=== PATIENT | female | born 1995 | race American Indian/Alaskan Native ===

== ENCOUNTER 2019-01-25 11:12 | Emergency (ER) | payer MEDICAID, OTHER ==
--- NOTE | 2019-01-25 11:20 | Event Note ---
ED Screening Note ED Screening Note: 6w preg states due in Aug does not know LMP saw MD at clinic g2 multiples denies dm but states has had coma due to inc blood sugar appears altered pmh sz due to head trauma only when stressed off keppra denies mh history This initial assessment/diagnostic orders/clinical plan/treatment(s) is/are subj ect to change based on patients health status, clinical progression and re- assessment by fellow clinical providers in the ED. Further treatment and workup at subsequent clinical providers discretion. Patient/guardian urged not to elope from the ED as their condition may be serious if not clinically assessed and managed. Initial orders include: blood sugar 85 labs fluids/zoftan
[2019-01-25] MEDS ORDERED: ZOFRAN IV ONE (11:41)
[2019-01-25] MEDS ORDERED: NACL 0.9% 1000 ML 1,000 ML IV ONE (11:41)
--- NOTE | 2019-01-25 11:49 | Emergency Department Report ---
<SU CASTILLO - Last Filed: 01/25/19 11:42> ED N/V/D HPI - General Chief complaint: Nausea/Vomiting/Diarrhea Stated complaint: NAUSE/VOMITING Time Seen by Provider: 01/25/19 11:16 Source: patient Mode of arrival: Ambulatory Limitations: No Limitations - History of Present Illness Initial comments: 23-year-old -[place] female that is 6 weeks comes in reporting she cannot hold anything down. Patient reports that this been going on for 3 days. Patient last menstrual period was 12/10/2018. She is 2 para 2 with a set of twins. She admits abdominal pain and vaginal discharge but no vaginal bleeding. Patient has no past medical history no prior complications the except babies were delivered 2 months early because of one baby was compromising her foot than other baby. Patient reports that she has not started care had started vitamins but has stopped since she is vomiting. MD complaint: nausea, vomiting, abdominal pain Onset/Timin -: days(s) Description of Vomiting: food contents, watery Associated Abdominal Pain: Yes Location: diffuse Severity: mild Pain Scale: 0 Quality: cramping Consistency: intermittent Improves with: none Worsens with: none Associated Symptoms: nausea/vomiting - Related Data Previous Rx's Medication Instructions Recorded Last Taken Type Ondansetron [Zofran Odt] 4 mg PO Q8HR #14 tab.rapdis 01/25/19 Unknown Rx Allergies Allergy/AdvReac Type Severity Reaction Status Date / Time latex Allergy Rash Verified 01/25/19 11:14 ED Review of Systems Comment: All other systems reviewed and negative Gastrointestinal: abdominal pain (cramping), nausea, vomiting ED Past Medical Hx - Past Medical History Previous Medical History?: Yes 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 - Surgical History Additional Surgical History: C/S - Social History Smoking Status: Never Smoker Substance Use Type: None - Medications Home Medications: Home Medications Medication Instructions Recorded Confirmed Last Taken Type Ondansetron [Zofran Odt] 4 mg PO Q8HR #14 tab.rapdis 01/25/19 Unknown Rx ED Physical Exam - General Limitations: No Limitations General appearance: alert, in no apparent distress - Head Head exam: Present: atraumatic, normocephalic - Eye Eye exam: Present: normal appearance - ENT ENT exam: Present: mucous membranes moist - Respiratory Respiratory exam: Present: normal lung sounds bilaterally. Absent: respiratory distress - Cardiovascular Cardiovascular Exam: Present: regular rate, normal rhythm. Absent: systolic murmur, diastolic murmur, rubs, gallop - GI/Abdominal GI/Abdominal exam: Present: soft, normal bowel sounds. Absent: distended, tend erness - Extremities Exam Extremities exam: Present: normal inspection, full ROM - Back Exam Back exam: Present: normal inspection, full ROM - Neurological Exam Neurological exam: Present: alert, oriented X3 - Psychiatric Psychiatric exam: Present: normal affect, normal mood - Skin Skin exam: Present: warm, dry, intact, normal color. Absent: rash ED Medical Decision Making - Medical Decision Making 43-year-old female comes in for nausea vomiting abdominal pain. 6 weeks . Labs have been ordered ultrasound has been ordered IV fluids and IV Zofran 4 mg. ED Disposition Clinical Impression: Hyperemesis gravidarum Disposition: DC- TO HOME OR SELFCARE Condition: Stable Instructions: Hyperemesis Gravidarum (ED) Additional Instructions: Follow-up with your [facility] <LORE CALABRESE - Last Filed: 01/25/19 15:17> ED Review of Systems ROS: Stated complaint: NAUSE/VOMITING Other details as noted in HPI ED Course Vital Signs 01/25/19 11:19 Temperature 98.4 F Pulse Rate 82 Respiratory 16 Rate Blood Pressure 133/66 [Left] O2 Sat by Pulse 100 Oximetry ED Medical Decision Making - Lab Data Result diagrams: 01/25/19 11:46 01/25/19 11:46 Lab Results 01/25/19 01/25/19 01/25/19 Range/Units 11:26 11:34 11:46 WBC 10.1 (4.5-11.0) K/mm3 RBC 4.53 (3.65-5.03) M/mm3 Hgb 14.2 (10.1-14.3) gm/dl Hct 40.9 (30.3-42.9) % MCV 90 (79-97) fl MCH 31 (28-32) pg MCHC 35 H (30-34) % RDW 14.7 (13.2-15.2) % Plt Count 225 (140-440) K/mm3 Sodium (137-145) mmol/L Potassium (3.6-5.0) mmol/L Chloride (98-107) mmol/L Carbon Dioxide (22-30) mmol/L Anion Gap mmol/L BUN (7-17) mg/dL Creatinine (0.7-1.2) mg/dL Estimated GFR ml/min BUN/Creatinine Ratio % Glucose (65-100) mg/dL POC Glucose 85 (70-105) Calcium (8.4-10.2) mg/dL Total Bilirubin (0.1-1.2) mg/dL AST (5-40) units/L ALT (7-56) units/L Alkaline Phosphatase (35-129) units/L Total Protein (6.3-8.2) g/dL Albumin (3.9-5) g/dL Albumin/Globulin Ratio % HCG, Quant (0-4) mIU/mL Urine Color Yellow (Yellow) Urine Turbidity Cloudy (Clear) Urine pH 6.0 (5.0-7.0) Ur Specific [place] 1.024 (1.003-1.030) Urine Protein 30 mg/dl (Negative) mg/dL Urine Glucose (UA) Neg (Negative) mg/dL Urine Ketones 80 (Negative) mg/dL Urine Blood Neg (Negative) Urine Nitrite Neg (Negative) Urine Bilirubin Neg (Negative) Urine Urobilinogen < 2.0 (<2.0) mg/dL Ur Leukocyte Esterase Neg (Negative) Urine WBC (Auto) 1.0 (0.0-6.0) /HPF Urine RBC (Auto) 4.0 (0.0-6.0) /HPF U Epithel Cells (Auto) 24.0 H (0-13.0) /HPF Urine Mucus 3+ /HPF 01/25/19 01/25/19 Range/Units 11:46 11:46 WBC (4.5-11.0) K/mm3 RBC (3.65-5.03) M/mm3 Hgb (10.1-14.3) gm/dl Hct (30.3-42.9) % MCV (79-97) fl MCH (28-32) pg MCHC (30-34) % RDW (13.2-15.2) % Plt Count (140-440) K/mm3 Sodium 136 L (137-145) mmol/L Potassium 3.5 L (3.6-5.0) mmol/L Chloride 104.5 (98-107) mmol/L Carbon Dioxide 19 L (22-30) mmol/L Anion Gap 16 mmol/L BUN 9 (7-17) mg/dL Creatinine 0.4 L (0.7-1.2) mg/dL Estimated GFR > 60 ml/min BUN/Creatinine Ratio 23 % Glucose 84 (65-100) mg/dL POC Glucose (70-105) Calcium 9.5 (8.4-10.2) mg/dL Total Bilirubin 0.30 (0.1-1.2) mg/dL AST 15 (5-40) units/L ALT 12 (7-56) units/L Alkaline Phosphatase 67 (35-129) units/L Total Protein 7.7 (6.3-8.2) g/dL Albumin 4.2 (3.9-5) g/dL Albumin/Globulin Ratio 1.2 % HCG, Quant 09075 H (0-4) mIU/mL Urine Color (Yellow) Urine Turbidity (Clear) Urine pH (5.0-7.0) Ur Specific [place] (1.003-1.030) Urine Protein (Negative) mg/dL Urine Glucose (UA) (Negative) mg/dL Urine Ketones (Negative) mg/dL Urine Blood (Negative) Urine Nitrite (Negative) Urine Bilirubin (Negative) Urine Urobilinogen (<2.0) mg/dL Ur Leukocyte Esterase (Negative) Urine WBC (Auto) (0.0-6.0) /HPF Urine RBC (Auto) (0.0-6.0) /HPF U Epithel Cells (Auto) (0-13.0) /HPF Urine Mucus /HPF - Radiology Data Radiology results: image reviewed (patient has a viable 6-1/2 week gestation within the uterus) - Medical Decision Making Patient's nausea was improved with IV antiemetics. She does have a viable IUP. Patient be discharged home with medications for symptom relief. Critical care attestation.: If time is entered above; I have spent that time in minutes in the direct care of this critically ill patient, excluding procedure time. ED Disposition Is pt being admited?: No Does the pt Need Aspirin: No Time of Disposition: 15:16
[2019-01-25 12:11] LABS: Hematocrit 40.9 % (30.3-42.9); Hemoglobin 14.2 gm/dl (10.1-14.3); Mean Corpuscular HGB Conc 35 % (30-34); Mean Corpuscular Volume 90 fl (79-97); Platelet Count 225 K/mm3 (140-440); Red Blood Count 4.53 M/mm3 (3.65-5.03); Red Cell Distribution Width 14.7 % (13.2-15.2)
[2019-01-25 12:14] LABS: Bilirubin,Urine NEG (Negative); Blood,Urine NEG (Negative); Color,Urine Yellow (Yellow); Mucus,Urine 3+ /HPF; Urobilinogen,Urine < 2.0 mg/dL (<2.0)
[2019-01-25 12:36] LABS: Alanine Aminotransferase 12 units/L (7-56); Albumin 4.2 g/dL (3.9-5); BUN/Creatinine Ratio 23; Blood Urea Nitrogen 9 mg/dL (7-17); Calcium 9.5 mg/dL (8.4-10.2); Hemolysis Index 35
[2019-01-25 15:29] VITALS: BP 103/65
--- NOTE | 2019-01-25 16:14 | Ultrasound Report ---
Transabdominal and transvaginal OB pelvic ultrasound INDICATION / CLINICAL INFORMATION: 6 weeks with abdominal cramping. COMPARISON: None available. FINDINGS: Transabdominal: There is an intrauterine gestational sac with a pole measuring 6 weeks 2 days b y crown-rump length. The heart rate is 130 bpm. A yolk sac is present. The left ovary measures 3.3 x 2.0 x 3.1 cm and contains a questionable complex cyst. The right ovary measures 3.6 x 2.8 x 2.5 cm and contains a 2.4 cm corpus luteal cyst. There is normal blood flow to both ovaries on Doppler e xam. Transvaginal: There is a tiny area of subchorionic hemorrhage along the inferior margin of the gestat ional sac measuring approximately 1.6 cm. There is a pole measuring 6 weeks 6 days by crown-rum p length. A yolk sac is present. The heart rate is 128 bpm. The left ovary is unremarkable. The re is a 2.8 cm corpus luteal cyst in the right ovary. No free fluid is seen. IMPRESSION: 1. Single viable 6 week 6 day intrauterine . Tiny area of implantation hemorrhage inferiorly . 2. 2.8 cm corpus luteal cyst in the right ovary. Signer Name: Pardeep Harden MD Signed: 01/25/2019 4:09 PM Workstation Name: [id number]
== END 2019-01-25 15:26 | disposition home or self-care (01) ==
LOC: ED 11:12
DX: O21.0 Mild hyperemesis gravidarum (principal); O26.891 Other specified pregnancy related conditions, first trimester; R10.9 Unspecified abdominal pain; N89.8 Other specified noninflammatory disorders of vagina; Z3A.01 Less than 8 weeks gestation of pregnancy
CPT/HCPCS: 36415; 76801; 76817; 80053; 81001; 82962; 84702; 85027; 96361; 96374; 99284; J2405; J7030

== ENCOUNTER 2019-02-09 08:36 | Emergency (ER) | payer OTHER ==
[2019-02-09 08:56] VITALS: BP 122/65
[2019-02-09] MEDS ORDERED: NACL 0.9% 1000 ML 1,000 ML IV ONE (09:47)
[2019-02-09] MEDS ORDERED: ZOFRAN IV ONE (09:47)
[2019-02-09 10:12] LABS: Basophils % (Auto) 0.3 % (0.0-1.8); Eosinophils % (Auto) 0.1 % (0.0-4.3); Hemoglobin 14.6 gm/dl (10.1-14.3); Lymphocytes # (Auto) 2.4 K/mm3 (1.2-5.4); Mean Corpuscular HGB Conc 34 % (30-34); Mean Corpuscular Hemoglobin 31 pg (28-32); Mean Corpuscular Volume 90 fl (79-97); Monocytes % (Auto) 8.8 % (0.0-7.3); Platelet Count 224 K/mm3 (140-440); Red Blood Count 4.76 M/mm3 (3.65-5.03); Red Cell Distribution Width 14.4 % (13.2-15.2)
--- NOTE | 2019-02-09 10:14 | Emergency Department Report ---
ED Abdominal Pain HPI - General Chief Complaint: Nausea/Vomiting/Diarrhea Stated Complaint: KIDNEY PAIN Time Seen by Provider: 02/09/19 09:20 Source: patient Mode of arrival: Ambulatory Limitations: No Limitations - History of Present Illness Initial Comments: Patient is a 23-year-old who is currently about 9 weeks the last menstrual period of 12/10/2018. Patient has been seen by Dr. Cochran at [facility] for care. Patient's stress previous diagnosis for hyperemesis . Patient states that she's been having right sided flank pain with some diarrhea for the past couple of days. Patient denies dysuria, vaginal bleeding, vaginal discharge or any fever. MD Complaint: flank pain Location: R flank Radiation: none Migration to: no migration Severity scale (0 -10): 4 - Related Data Previous Rx's Medication Instructions Recorded Last Taken Type Ondansetron [Zofran Odt] 4 mg PO Q8HR #14 tab.marciadis 01/25/19 Unknown Rx Doxylamine Succinate/Vit B6 2 each PO QHS #40 tablet. 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 02/09/19 Unknown Rx [Abilio Sanchez 10-10 mg Tablet] ED Physical Exam - General Limitations: No Limitations General appearance: alert, in no apparent distress - Head Head exam: Present: atraumatic, normocephalic - Eye Eye exam: Present: normal appearance - ENT ENT exam: Present: mucous membranes moist - Neck Neck exam: Present: normal inspection - Respiratory Respiratory exam: Present: normal lung sounds bilaterally. Absent: respiratory distress - Cardiovascular Cardiovascular Exam: Present: regular rate, normal rhythm. Absent: systolic murmur, diastolic murmur, rubs, gallop - GI/Abdominal GI/Abdominal exam: Present: soft, normal bowel sounds. Absent: distended, tenderness, guarding - Extremities Exam Extremities exam: Present: normal inspection, full ROM - Back Exam Back exam: Present: normal inspection, full ROM. Absent: tenderness, CVA tenderness (R), CVA tenderness (L) - Neurological Exam Neurological exam: Present: alert, oriented X3 - Psychiatric Psychiatric exam: Present: normal affect, normal mood - Skin Skin exam: Present: warm, dry, intact, normal color. Absent: rash ED Course Vital Signs 02/09/19 08:53 Temperature 98.2 F Pulse Rate 78 Respiratory 16 Rate Blood Pressure 122/65 [Left] O2 Sat by Pulse 100 Oximetry ED Medical Decision Making - Lab Data Result diagrams: 02/09/19 10:00 02/09/19 10:00 - Medical Decision Making This is a 23-year-old female who presented with right flank pain with diarrhea. CBC, BMP, urinalysis are obtained. Labs within normal limits. Patient has a little dehydrated. Resuscitated patient 1 L of fluids and Zofran for nausea. Vital signs are stable patient is in no acute distress. Discussed follow-up with her [facility] in 2-3 days. Discussed the patient examined worsening symptoms or new symptoms return to ED. She is able to speak in clear sentences, on the sinus instructions and will follow up Critical care attestation.: If time is entered above; I have spent that time in minutes in the direct care of this critically ill patient, excluding procedure time. ED Disposition Clinical Impression: Acute diarrhea, Acute gastroenteritis Disposition: DC-01 TO HOME OR SELFCARE Is pt being admited?: No Does the pt Need Aspirin: No Condition: Stable Instructions: Gastroenteritis (ED), Acute Diarrhea (ED) Additional Instructions: Make sure to follow up with the primary care physician as discussed. Take all your medications as you've been prescribed. If you have any worsening symptoms or develop new symptoms please return to ED immediately. Prescriptions: Doxylamine Succinate/Vit B6 [Abilio Sanchez 10-10 mg Tablet] 2 each PO QHS #40 tablet. Referrals: COMPA UGARTE MD [Primary Care Provider] - 3-5 Days [facility] [Provider Group] - 3-5 Days Forms: Accompanied Note, Work/School Release Form(ED) Time of Disposition: 11:02
[2019-02-09 10:24] LABS: Mucus,Urine 3+ /HPF
[2019-02-09 10:25] LABS: Bilirubin,Urine NEG (Negative); Blood,Urine NEG (Negative); Color,Urine Amber (Yellow)
[2019-02-09 10:29] LABS: BUN/Creatinine Ratio 20; Blood Urea Nitrogen 10 mg/dL (7-17); Calcium 9.6 mg/dL (8.4-10.2); Hemolysis Index 8
== END 2019-02-09 11:42 | disposition home or self-care (01) ==
LOC: ED 08:36
DX: O99.611 Diseases of the digestive system complicating pregnancy, first trimester (principal); K52.9 Noninfective gastroenteritis and colitis, unspecified; Z98.890 Other specified postprocedural states; Z91.040 Latex allergy status; Z3A.09 9 weeks gestation of pregnancy
CPT/HCPCS: 36415; 80048; 81001; 85025; 96361; 96374; 99283; J2405; J7030

== ENCOUNTER 2019-07-10 07:38 | Inpatient (IN) | payer MEDICAID ==
[2019-07-10] MEDS ORDERED: AMPICILLIN/NS 2 GM/100 ML 2 GM/100 ML BAG IV ONE (08:36)
[2019-07-10] MEDS ORDERED: LACTATED RINGERS 1,000 ML ONE (10:01)
[2019-07-10 11:35] LABS: Hematocrit 33.1 % (30.3-42.9); Hemoglobin 11.2 gm/dl (10.1-14.3); Mean Corpuscular HGB Conc 34 % (30-34); Mean Corpuscular Volume 92 fl (79-97); Platelet Count 221 K/mm3 (140-440); Red Cell Distribution Width 13.7 % (13.2-15.2)
[2019-07-10 11:59] LABS: Alanine Aminotransferase 14 units/L (7-56); Albumin 3.3 g/dL (3.9-5); BUN/Creatinine Ratio 12; Blood Urea Nitrogen 6 mg/dL (7-17); Calcium 8.9 mg/dL (8.4-10.2); Hemolysis Index 7
[2019-07-10] MEDS: ACETAMINOPHEN 325 MG TAB PO PRN ×2 (12:21→20:01)
[2019-07-10] MEDS: ALUM-MAG HYDROXIDE-SIMETHICONE 200-200-20MG/5ML ORAL LIQD 30 ML PO PRN ×3 (12:21→22:16)
[2019-07-10] MEDS: BETAMET ACET/BETAMET NA PH 6 MG/ML INJ 5 ML MDV IM SCH (12:22)
--- NOTE | 2019-07-10 13:18 | Ultrasound Report ---
Renal Ultrasound BPP HISTORY: Decreased movement. TECHNIQUE: Grayscale and color Doppler imaging performed. COMPARISON: OB ultrasound from 01/25/2019 FINDINGS: Renal ultrasound: Right kidney measures 13 cm with normal cortical thickness of 2.1 cm. Left kidney m easures 13.4 cm with normal cortical thickness of 2.5 cm. No renal mass, cyst, stone, or hydronephros is. Incidental note made of a gallstone. BPP: The fetus received a score of 0 out of 2 for breathing movement and score of 2 out of 2 fo r movement, posture/tone, and AMY. Total score was 6 out of 8. Heart rate was 174 bpm. A small placental simpson was noted. IMPRESSION: 1. Unremarkable appearance of the kidneys. 2. BPP score 6 out of 8, with a score of 0 for breathing movement. 3. Cholelithiasis. Signer Name: Golden Gant MD Signed: 07/10/2019 1:13 PM Workstation Name: [id number]
--- NOTE | 2019-07-10 14:49 | History and Physical Report ---
History of Present Illness Date of examination: 07/10/19 Date of admission: 07/10/19 07:39 Chief complaint: 30 wk pregnacy, admitted today with fevr and chills and back pain. History of present illness: [twins] at 30 wks. RYAN 09/16/2019. Walked into the unit with complaints of back ache/pain, fever and chills. Regular MD based in [place]. Past History Past Medical History: seizure (last episode was 2016) Past Surgical History: section - Obstetrical History Expected Date of Delivery: 09/16/19 Actual Gestation: 30 Week(s) 2 Day(s) : 2 Number of Living Children: 2 Medications and Allergies Allergies Allergy/AdvReac Type Severity Reaction Status Date / Time latex Allergy Rash Verified 02/09/19 08:38 Active Meds: Active Medications Acetaminophen (Tylenol) 650 mg PO Q6H PRN PRN Reason: Pain, Mild (1-3) Last Admin: 07/10/19 12:21 Dose: 650 mg Documented by: Al Hydrox/Mg Hydrox/Simethicone (Alum-Mag Hydrox-Simeth [id number]/5ml) 30 ml PO Q4H PRN PRN Reason: Indigestion Last Admin: 07/10/19 12:21 Dose: 30 ml Documented by: Betamethasone Acet/Betameth SodPhos (Celestone Soluspan) 12 mg IM Q24H TRISH Stop: 07/11/19 11:01 Last Admin: 07/10/19 12:22 Dose: 12 mg Documented by: Ampicillin Sodium (Ampicillin/Ns 1 Gm/50 Ml) 1 gm in 50 mls @ 100 mls/hr IV Q4H TRISH; Protocol Lactated Ringer's (Lactated Ringers) 1,000 mls @ 125 mls/hr IV DIRECT TRISH Ondansetron HCl (Zofran) 4 mg IV Q4H PRN PRN Reason: Nausea And Vomiting Review of Systems All systems: negative Constitutional: fever, chills Genitourinary: no contractions Musculoskeletal: low back pain - Vital Signs Vital signs: Vital Signs Temp 101.4 F H 07/10/19 08:30 Temp Pulse Resp BP Pulse Ox 100.1 F H 101 H 18 114/59 98 07/10/19 12:15 07/10/19 13:10 07/10/19 12:15 07/10/19 12:21 07/10/19 13:10 - Physical Exam Lungs: Positive: Normal air movement Abdomen: Positive: normal appearance, soft, normal bowel sounds. Negative: tenderness Extremities: Positive: normal Deep Tendon Reflex Grade: Normal +2 - Obstetrical FHR: category 1 Uterine Contraction Pattern: Absent Results Result Diagrams: 07/10/19 11:14 07/10/19 11:14 Abnormal lab results 07/10/19 07/10/19 Range/Units 11:14 11:14 RBC 3.60 L (3.65-5.03) M/mm3 Carbon Dioxide 19 L (22-30) mmol/L BUN 6 L (7-17) mg/dL Creatinine 0.5 L (0.7-1.2) mg/dL Albumin 3.3 L (3.9-5) g/dL All other labs normal.
[2019-07-10] MEDS: AMPICILLIN/NS 1 GM/50 ML 1 GM/50 ML BAG IV SCH ×3 (15:06→22:16)
[2019-07-10 16:22] LABS: Amphetamine Screen,Urine PRESUMPTIVE NEGATIVE; Benzodiazepines Screen,Urine PRESUMPTIVE NEGATIVE; Cocaine Screen,Urine PRESUMPTIVE NEGATIVE; Methadone Screen,Urine PRESUMPTIVE NEGATIVE; Opiate Screen,Urine PRESUMPTIVE NEGATIVE
[2019-07-10 16:30] LABS: Bilirubin,Urine NEG (Negative); Blood,Urine NEG (Negative); Color,Urine Yellow (Yellow); Mucus,Urine FEW /HPF; Protein,Urine <15 mg/dL mg/dL (Negative); Urobilinogen,Urine < 2.0 mg/dL (<2.0); WBC,Urine < 1.0 /HPF (0.0-6.0)
[2019-07-10 16:33] LABS: Cannabinoid Screen,Urine PRESUMPTIVE POSITIVE
[2019-07-10] MEDS: LACTATED RINGERS 1,000 ML IV SCH (18:41)
[2019-07-11] MEDS: ONDANSETRON 4 MG/2 ML INJ IV PRN ×2 (02:45→11:59)
[2019-07-11] MEDS: AMPICILLIN/NS 1 GM/50 ML 1 GM/50 ML BAG IV SCH ×4 (03:12→13:52)
[2019-07-11] MEDS: LACTATED RINGERS 1,000 ML IV SCH (03:14)
[2019-07-11] MEDS: ACETAMINOPHEN 325 MG TAB PO PRN (05:55)
--- NOTE | 2019-07-11 09:40 | Progress Note ---
Assessment and Plan pyelonephritis Patient improved last fever at 07/11/19 at 10:04 (101.3) continue ampicillin 1gm SP celestonex1, second dose scheduled for today 07/11/19 at 12:22pm repeat labs Subjective - Subjective Date of service: 07/11/19 Principal diagnosis: pyelonephritis Interval history: 23yo at 30+3/7 weeks admitted with pyelonephritis Doing well, feeling better: continues to have right sided flank pain no OB complaints GFM, no VB,LOF and no contractions. Objective - Vital Signs Vital Signs: Vital Signs - 12hr 07/10/19 07/10/19 07/10/19 21:42 21:47 21:52 Temperature Pulse Rate 95 H 95 H 106 H Respiratory Rate Blood Pressure Blood Pressure [Left] O2 Sat by Pulse 100 100 97 Oximetry 07/10/19 07/10/19 07/10/19 21:57 22:02 22:07 Temperature Pulse Rate 95 H 93 H 96 H Respiratory Rate Blood Pressure Blood Pressure [Left] O2 Sat by Pulse 98 96 95 Oximetry 07/10/19 07/10/19 07/10/19 22:12 22:17 22:19 Temperature 98.0 F Pulse Rate 94 H 105 H 97 H Respiratory Rate Blood Pressure Blood Pressure [Left] O2 Sat by Pulse 95 96 Oximetry 07/10/19 07/10/19 07/10/19 22:22 22:27 22:32 Temperature Pulse Rate 91 H 83 85 Respiratory Rate Blood Pressure Blood Pressure [Left] O2 Sat by Pulse 97 97 96 Oximetry 07/10/19 07/10/19 07/10/19 22:37 22:48 22:53 Temperature Pulse Rate 82 92 H 75 Respiratory Rate Blood Pressure Blood Pressure [Left] O2 Sat by Pulse 97 98 99 Oximetry 07/10/19 07/10/19 07/10/19 22:58 23:03 23:08 Temperature Pulse Rate 83 78 74 Respiratory Rate Blood Pressure Blood Pressure [Left] O2 Sat by Pulse 98 98 98 Oximetry 07/10/19 07/10/19 07/10/19 23:13 23:18 23:23 Temperature Pulse Rate 83 82 86 Respiratory Rate Blood Pressure Blood Pressure [Left] O2 Sat by Pulse 98 98 97 Oximetry 07/10/19 07/10/19 07/10/19 23:28 23:33 23:38 Temperature Pulse Rate 84 84 80 Respiratory Rate Blood Pressure Blood Pressure [Left] O2 Sat by Pulse 97 98 98 Oximetry 07/10/19 07/10/19 07/10/19 23:43 23:48 23:53 Temperature Pulse Rate 78 85 86 Respiratory Rate Blood Pressure Blood Pressure [Left] O2 Sat by Pulse 97 97 99 Oximetry 07/10/19 07/11/19 07/11/19 23:59 00:04 00:09 Temperature Pulse Rate 78 77 73 Respiratory Rate Blood Pressure Blood Pressure [Left] O2 Sat by Pulse 98 96 96 Oximetry 07/11/19 07/11/19 07/11/19 00:14 00:19 00:24 Temperature Pulse Rate 79 83 83 Respiratory Rate Blood Pressure Blood Pressure [Left] O2 Sat by Pulse 96 96 95 Oximetry 07/11/19 07/11/19 07/11/19 00:29 00:34 00:39 Temperature Pulse Rate 83 85 83 Respiratory Rate Blood Pressure Blood Pressure [Left] O2 Sat by Pulse 96 96 96 Oximetry 07/11/19 07/11/19 07/11/19 00:44 01:48 01:49 Temperature Pulse Rate 64 Respiratory Rate Blood Pressure Blood Pressure [Left] O2 Sat by Pulse 89 70 L 76 L Oximetry 07/11/19 07/11/19 07/11/19 01:53 01:58 02:03 Temperature Pulse Rate 77 77 82 Respiratory Rate Blood Pressure Blood Pressure [Left] O2 Sat by Pulse 99 99 97 Oximetry 07/11/19 07/11/19 07/11/19 02:08 02:13 02:18 Temperature Pulse Rate 80 81 86 Respiratory Rate Blood Pressure Blood Pressure [Left] O2 Sat by Pulse 98 97 98 Oximetry 07/11/19 07/11/19 07/11/19 02:23 02:28 02:33 Temperature Pulse Rate 81 88 84 Respiratory Rate Blood Pressure Blood Pressure [Left] O2 Sat by Pulse 98 98 100 Oximetry 07/11/19 07/11/19 07/11/19 02:38 02:43 02:48 Temperature Pulse Rate 85 81 96 H Respiratory Rate Blood Pressure Blood Pressure [Left] O2 Sat by Pulse 98 100 100 Oximetry 07/11/19 07/11/19 07/11/19 02:52 02:58 03:03 Temperature Pulse Rate 93 H 92 H 100 H Respiratory Rate Blood Pressure Blood Pressure [Left] O2 Sat by Pulse 91 100 100 Oximetry 07/11/19 07/11/19 07/11/19 03:08 03:13 03:18 Temperature Pulse Rate 93 H 95 H 101 H Respiratory Rate Blood Pressure Blood Pressure [Left] O2 Sat by Pulse 100 99 99 Oximetry 07/11/19 07/11/19 07/11/19 03:23 03:28 03:33 Temperature Pulse Rate 85 88 85 Respiratory Rate Blood Pressure Blood Pressure [Left] O2 Sat by Pulse 99 98 98 Oximetry 07/11/19 07/11/19 07/11/19 03:38 03:43 03:48 Temperature Pulse Rate 88 87 92 H Respiratory Rate Blood Pressure Blood Pressure [Left] O2 Sat by Pulse 98 98 97 Oximetry 07/11/19 07/11/19 07/11/19 03:53 03:58 04:03 Temperature Pulse Rate 92 H 92 H 89 Respiratory Rate Blood Pressure Blood Pressure [Left] O2 Sat by Pulse 97 97 98 Oximetry 07/11/19 07/11/19 07/11/19 04:08 05:55 05:56 Temperature 97.9 F Pulse Rate 87 Respiratory 18 Rate Blood Pressure Blood Pressure [Left] O2 Sat by Pulse 97 Oximetry 07/11/19 07/11/19 07/11/19 06:55 08:28 08:29 Temperature 98.4 F Pulse Rate 77 77 Respiratory 18 18 Rate Blood Pressure 107/56 Blood Pressure 107/56 [Left] O2 Sat by Pulse Oximetry 07/11/19 07/11/19 07/11/19 09:00 09:05 09:10 Temperature Pulse Rate 93 H 96 H 93 H Respiratory Rate Blood Pressure Blood Pressure [Left] O2 Sat by Pulse 99 98 99 Oximetry 07/11/19 07/11/19 07/11/19 09:15 09:20 09:25 Temperature Pulse Rate 89 84 81 Respiratory Rate Blood Pressure Blood Pressure [Left] O2 Sat by Pulse 97 97 97 Oximetry 07/11/19 07/11/19 09:30 09:35 Temperature Pulse Rate 89 93 H Respiratory Rate Blood Pressure Blood Pressure [Left] O2 Sat by Pulse 97 100 Oximetry - Exam Breasts: deferred Cardiovascular: Regular rate Lungs: Clear to auscultation Abdomen: Present: normal appearance Uterus: Present: normal FHR: category 1 (FHT 140 baseline, moderate variability) Uterine Contraction Monitor Mode: External - Labs Labs: Abnormal Labs 12/17/19 12/17/19 12/17/19 11:14 11:14 Unknown RBC 3.60 L Carbon Dioxide 19 L BUN 6 L Creatinine 0.5 L Albumin 3.3 L Urine pH 8.0 H Laboratory Results - last 24 hr 07/10/19 07/10/19 07/10/19 11:14 11:14 21:10 WBC 9.9 RBC 3.60 L Hgb 11.2 Hct 33.1 MCV 92 MCH 31 MCHC 34 RDW 13.7 Plt Count 221 Sodium 137 Potassium 3.8 Chloride 102.9 Carbon Dioxide 19 L Anion Gap 19 BUN 6 L Creatinine 0.5 L Estimated GFR > 60 BUN/Creatinine Ratio 12 Glucose 83 Calcium 8.9 Total Bilirubin 0.20 AST 19 ALT 14 Alkaline Phosphatase 80 Total Protein 6.4 Albumin 3.3 L Albumin/Globulin Ratio 1.1 Urine Color Urine Turbidity Urine pH Ur Specific [place] Urine Protein Urine Glucose (UA) Urine Ketones Urine Blood Urine Nitrite Urine Bilirubin Urine Urobilinogen Ur Leukocyte Esterase Urine WBC (Auto) Urine RBC (Auto) U Epithel Cells (Auto) Urine Mucus Urine Opiates Screen Urine Methadone Screen Ur Barbiturates Screen Ur Phencyclidine Scrn Ur Amphetamines Screen U Benzodiazepines Scrn Urine Cocaine Screen U Marijuana (THC) Screen Drugs of Abuse Note Blood Type A POSITIVE Antibody Screen Negative 07/10/19 07/10/19 Unknown Unknown WBC RBC Hgb Hct MCV MCH MCHC RDW Plt Count Sodium Potassium Chloride Carbon Dioxide Anion Gap BUN Creatinine Estimated GFR BUN/Creatinine Ratio Glucose Calcium Total Bilirubin AST ALT Alkaline Phosphatase Total Protein Albumin Albumin/Globulin Ratio Urine Color Yellow Urine Turbidity Clear Urine pH 8.0 H Ur Specific [place] 1.012 Urine Protein <15 mg/dl Urine Glucose (UA) Neg Urine Ketones Tr Urine Blood Neg Urine Nitrite Neg Urine Bilirubin Neg Urine Urobilinogen < 2.0 Ur Leukocyte Esterase Neg Urine WBC (Auto) < 1.0 Urine RBC (Auto) 1.0 U Epithel Cells (Auto) 2.0 Urine Mucus Few Urine Opiates Screen Presumptive negative Urine Methadone Screen Presumptive negative Ur Barbiturates Screen Presumptive negative Ur Phencyclidine Scrn Presumptive negative Ur Amphetamines Screen Presumptive negative U Benzodiazepines Scrn Presumptive negative Urine Cocaine Screen Presumptive negative U Marijuana (THC) Screen Presumptive positive Drugs of Abuse Note Disclamer Blood Type Antibody Screen
[2019-07-11 10:29] LABS: Basophils % (Auto) 0.2 % (0.0-1.8); Hemoglobin 9.2 gm/dl (10.1-14.3); Lymphocytes # (Auto) 1.4 K/mm3 (1.2-5.4); Lymphocytes % (Auto) 17.4 % (13.4-35.0); Mean Corpuscular HGB Conc 34 % (30-34); Mean Corpuscular Volume 92 fl (79-97); Monocytes % (Auto) 12.7 % (0.0-7.3); Platelet Count 190 K/mm3 (140-440); Red Blood Count 2.91 M/mm3 (3.65-5.03); Red Cell Distribution Width 13.9 % (13.2-15.2)
[2019-07-11 11:09] LABS: Hematocrit 26.7 % (30.3-42.9)
[2019-07-11] MEDS: BETAMET ACET/BETAMET NA PH 6 MG/ML INJ 5 ML MDV IM SCH (12:21)
[2019-07-11] MEDS: ALUM-MAG HYDROXIDE-SIMETHICONE 200-200-20MG/5ML ORAL LIQD 30 ML PO PRN (13:52)
--- NOTE | 2019-07-11 17:08 | Progress Note ---
Subjective - Subjective Date of service: 07/11/19 Principal diagnosis: pyelonephritis Interval history: 23yo at 30+3/7 weeks admitted with pyelonephritis Afebrile Abx d/c this AM Patient completed full course of IV abx Plan to complete full course of steroids and discharge to home Maternal/ status reassuring overall. Monico Salas MD Objective - Vital Signs Vital Signs: Vital Signs - 12hr 07/11/19 07/11/19 07/11/19 05:55 05:56 06:55 Temperature 97.9 F Pulse Rate Respiratory 18 18 Rate Blood Pressure Blood Pressure [Left] O2 Sat by Pulse Oximetry 07/11/19 07/11/19 07/11/19 08:28 08:29 09:00 Temperature 98.4 F Pulse Rate 77 77 93 H Respiratory 18 Rate Blood Pressure 107/56 Blood Pressure 107/56 [Left] O2 Sat by Pulse 99 Oximetry 07/11/19 07/11/19 07/11/19 09:05 09:10 09:15 Temperature Pulse Rate 96 H 93 H 89 Respiratory Rate Blood Pressure Blood Pressure [Left] O2 Sat by Pulse 98 99 97 Oximetry 07/11/19 07/11/19 07/11/19 09:20 09:25 09:30 Temperature Pulse Rate 84 81 89 Respiratory Rate Blood Pressure Blood Pressure [Left] O2 Sat by Pulse 97 97 97 Oximetry 07/11/19 07/11/19 07/11/19 09:35 09:40 09:45 Temperature Pulse Rate 93 H 96 H 91 H Respiratory Rate Blood Pressure Blood Pressure [Left] O2 Sat by Pulse 100 96 99 Oximetry 07/11/19 07/11/19 07/11/19 09:50 09:55 10:00 Temperature Pulse Rate 84 86 87 Respiratory Rate Blood Pressure Blood Pressure [Left] O2 Sat by Pulse 97 97 97 Oximetry 07/11/19 07/11/19 07/11/19 10:05 10:10 10:15 Temperature Pulse Rate 85 84 85 Respiratory Rate Blood Pressure Blood Pressure [Left] O2 Sat by Pulse 97 99 99 Oximetry 07/11/19 07/11/19 07/11/19 10:20 10:25 10:30 Temperature Pulse Rate 90 82 87 Respiratory Rate Blood Pressure Blood Pressure [Left] O2 Sat by Pulse 99 98 98 Oximetry 07/11/19 07/11/19 07/11/19 10:35 10:40 10:45 Temperature Pulse Rate 88 87 89 Respiratory Rate Blood Pressure Blood Pressure [Left] O2 Sat by Pulse 98 100 100 Oximetry 07/11/19 07/11/19 07/11/19 10:50 10:52 12:06 Temperature Pulse Rate 87 96 H 91 H Respiratory Rate Blood Pressure 101/54 Blood Pressure [Left] O2 Sat by Pulse 99 93 Oximetry 07/11/19 07/11/19 12:08 16:40 Temperature 98.3 F Pulse Rate 91 H 98 H Respiratory 16 Rate Blood Pressure 103/61 Blood Pressure 101/54 [Left] O2 Sat by Pulse Oximetry - Labs Labs: Abnormal Labs 07/10/19 07/10/19 07/10/19 11:14 11:14 Unknown RBC 3.60 L Hgb Hct [place] % (Auto) [place] # Carbon Dioxide 19 L BUN 6 L Creatinine 0.5 L Albumin 3.3 L Urine pH 8.0 H 07/11/19 10:09 RBC 2.91 L Hgb 9.2 L Hct 26.7 L D [place] % (Auto) 12.7 H [place] # 1.0 H Carbon Dioxide BUN Creatinine Albumin Urine pH Laboratory Results - last 24 hr 07/10/19 07/11/19 21:10 10:09 WBC 7.8 RBC 2.91 L Hgb 9.2 L Hct 26.7 L D MCV 92 MCH 32 MCHC 34 RDW 13.9 Plt Count 190 Lymph % (Auto) 17.4 [place] % (Auto) 12.7 H Eos % (Auto) 0.0 Baso % (Auto) 0.2 Lymph # 1.4 [place] # 1.0 H Eos # 0.0 Baso # 0.0 Seg Neutrophils % 69.7 Seg Neutrophils # 5.4 Blood Type A POSITIVE Antibody Screen Negative
--- NOTE | 2019-07-11 17:11 | Discharge Summary ---
Providers - Providers Date of Admission: 07/10/19 07:39 Date of discharge: 07/11/19 Attending physician: SABIHA LOPES MD 07/10/19 08:36 Consult to Physician [CONS] Stat Comment: Consulting Provider: KEM KIDD Physician Instructions: Reason For Exam: Suspected kidney infection in 07/10/19 14:57 Consult to Physician [CONS] Routine Comment: Consulting Provider: DASHAWN SPENCER Physician Instructions: Reason For Exam: chest pain Primary care physician: SABIHA LOPES MD Hospitalization Reason for admission: other (pyelonephritis) Discharge diagnosis: other (Pyelonephritis in ) Condition at discharge: Stable Disposition: DC-01 TO HOME OR SELFCARE Plan - Provider Discharge Summary Activity: routine Diet: routine Instructions: routine Additional instructions: [] Smoking cessation referral if applicable(refer to patient education folder for contact #) [] Refer to [facility] Booklet Call your doctor immediately for: * Fever > 100.5 * Heavy vaginal bleeding ( >1 pad per hour) * Severe persistent headache * Shortness of breath * Reddened, hot, painful area to leg or breast * Drainage or odor from incision. * Keep incision clean and dry at all times and follow doctor's instructions regarding bathing/showering Follow up OBGYN one week Monico Salas MD - Follow up plan Follow up: SABIHA LOPES MD [Primary Care Provider] - 7 Days Forms: Work/School Excuse Out Patient
[2019-07-11 17:54] VITALS: BP 98/53
== END 2019-07-11 18:20 | disposition home or self-care (01) | DRG 781 ==
LOC: TRG 07:38 → LD 07:39 → TRG 07:39
PROVIDERS: ADMIT Obstetrics & Gynecology; ATTEND Obstetrics & Gynecology
DX: O23.03 Infections of kidney in pregnancy, third trimester (principal); Z3A.30 30 weeks gestation of pregnancy; Z91.040 Latex allergy status
CPT/HCPCS: 36415; 76770; 76819; 80053; 80307; 81001; 85025; 85027; 86850; 86900; 86901; 87086; 87116; G0378; J0290; J0702; J2405; J7120

== ENCOUNTER 2020-04-10 13:18 | Emergency (ER) | payer MEDICAID ==
[2020-04-10 13:26] VITALS: BP 137/92
--- NOTE | 2020-04-10 15:16 | XRay Report ---
CHEST 2 VIEWS INDICATION / CLINICAL INFORMATION: productive cough x 1 mobth. COMPARISON: 01/07/2020 FINDINGS: SUPPORT DEVICES: None. HEART / MEDIASTINUM: No significant abnormality. LUNGS / PLEURA: No significant pulmonary or pleural abnormality. No pneumothorax. ADDITIONAL FINDINGS: No significant additional findings. IMPRESSION: No significant abnormality or change from 01/07/2020 Signer Name: Jason Wells MD FACR Signed: 04/10/2020 3:11 PM Workstation Name: [id number]
--- NOTE | 2020-04-10 16:55 | Emergency Department Report ---
Upper Respiratory HPI - HPI Chief Complaint: Upper Respiratory Infection Stated Complaint: MOLD SPREAD IN HOUSE/CHECK UP Time Seen by Provider: 04/10/20 16:27 Duration: 2 Days URI Symptoms: Rhinorrhea: No, Sore Throat: No, Ear Pain: No, Cough: Yes, Shortness of Breath: No, Sick Contacts: No, Unable to Take Fluids: No, Urine Output Abnormal: No, Listless Behavior: No Other History: This is a 24-year-old female nontoxic, well nourished in appearance, no acute signs of distress presents to the ED with c/o of nonproductive cough with rhinorrhea x2 days. Patient stated has been exposed to mold in her house. Stated has some chest pains during cough only. Patient denies any sick contacts. Patient denies any recent travels, long car, recent hospital stays. Patient denies any calf pain or calf tenderness. Patient denies any chest pain, short of breath, fever, chills, nausea, vomiting, hemoptysis, numbness, tingling, headache or stiff neck. - Home Meds and Allergies Home Medications: Previous Rx's Medication Instructions Recorded Last Taken Type Albuterol Mdi (or & Nicu Only) 2 puff IH QID PRN #8.5 gram 01/07/20 Unknown Rx [ProAir HFA Inhaler] Benzonatate [Tessalon Perles] 100 mg PO Q8HR PRN #20 capsule 01/07/20 Unknown Rx Fluconazole (Nf) [Diflucan TAB] 150 mg PO ONCE #1 tablet 01/07/20 Unknown Rx Benzonatate [Tessalon Perles] 100 mg PO Q8HR PRN #12 capsule 04/10/20 Unknown Rx Allergies/Adverse Reactions: Allergies Allergy/AdvReac Type Severity Reaction Status Date / Time latex Allergy Rash Verified 04/10/20 13:21 ED Review of Systems ROS: Stated complaint: MOLD SPREAD IN HOUSE/CHECK UP Other details as noted in HPI Constitutional: denies: chills, fever Eyes: denies: eye pain, eye discharge, vision change ENT: denies: ear pain, throat pain Respiratory: cough. denies: shortness of breath, wheezing Cardiovascular: denies: chest pain, palpitations Endocrine: no symptoms reported Gastrointestinal: denies: abdominal pain, nausea, diarrhea Genitourinary: denies: urgency, dysuria, discharge Musculoskeletal: denies: back pain, joint swelling, arthralgia Skin: denies: rash, lesions Neurological: denies: headache, weakness, paresthesias Psychiatric: denies: anxiety, depression Hematological/Lymphatic: denies: easy bleeding, easy bruising ED Past Medical Hx - Past Medical History Hx Hypertension: No Hx Diabetes: No Hx Deep Vein Thrombosis: No Hx Renal Disease: No Hx Sickle Cell Disease: No Hx Seizures: Yes Hx Asthma: Yes 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 - Surgical History Additional Surgical History: x2 - Social History Smoking Status: Never Smoker Substance Use Type: None - Medications Home Medications: Home Medications Medication Instructions Recorded Confirmed Last Taken Type Albuterol Mdi (or & Nicu Only) 2 puff IH QID PRN #8.5 gram 01/07/20 Unknown Rx [ProAir HFA Inhaler] Benzonatate [Tessalon Perles] 100 mg PO Q8HR PRN #20 capsule 01/07/20 Unknown Rx Fluconazole (Nf) [Diflucan TAB] 150 mg PO ONCE #1 tablet 01/07/20 Unknown Rx Benzonatate [Tessalon Perles] 100 mg PO Q8HR PRN #12 capsule 04/10/20 Unknown Rx ED Bronchiolitis Physical Exam - Exam General: Vital signs noted. No distress. Alert and acting appropriately. HEENT: No Pharyngeal Erythema, No Conjuctival Injection, No Dry Mucous Membranes, No Rhinorrhea Ear: Neither TM Bulge, Neither TM Erythema, Neither EAC Discharge Neck: No Adenopathy, No Rigidity Lungs: Yes Clear Lung Sounds, Yes Good Air Exchange, No Wheezes, No Stridor, No Cough, No Nasal Flaring, No Retractions, No Use of Accessory Muscles Heart: Yes Regular, No Murmur Abdomen: Yes Normal Bowel Sounds, No Tenderness, No Peritoneal Signs Skin: No Rash, No Eczema Neurologic: Alert and oriented, no deficits. Musculoskeletal: Unremarkable. ED Bronchiolitis Tests - Testing Testing: CXR: Normal/Negative ED Physical Exam - General Limitations: No Limitations ED Course Vital Signs 04/10/20 13:25 Temperature 98.1 F Pulse Rate 67 Respiratory 20 Rate Blood Pressure 137/92 O2 Sat by Pulse 100 Oximetry - Reevaluation(s) Reevaluation #1: 04/10/20 16:54 Patient is speaking in full sentences with no signs of distress noted. ED Medical Decision Making - Radiology Data Referring Physician: ELIZABETH COULTER Patient Name: DAVID STAFFORD Date of : 1995 Sex: Female Report Date: 2020-04-10 Report Status: Finalized [facility] [address] [place] [address] XRay Report Signed Patient: DAVID STAFFORD MR#: [id number] : 1995 Acct:[id number] Age/Sex: 24 / F ADM Date: 04/10/20 Loc: ED Attending Dr: Ordering Physician: ELIZABETH COULTER Date of Service: 04/10/20 Procedure(s): XR chest routine 2V Accession Number(s): [id number] cc: ELIZABETH COULTER Fluoro Time In Minutes: CHEST 2 VIEWS INDICATION / CLINICAL INFORMATION: productive cough x 1 mobth. COMPARISON: 01/07/2020 FINDINGS: SUPPORT DEVICES: None. HEART / MEDIASTINUM: No significant abnormality. LUNGS / PLEURA: No significant pulmonary or pleural abnormality. No pneumothorax. ADDITIONAL FINDINGS: No significant additional findings. IMPRESSION: No significant abnormality or change from 01/07/2020 Signer Name: Jason Wells MD FACR Signed: 04/10/2020 3:11 PM Workstation Name: [id number] Transcribed By: MS Dictated By: Jason Wells MD Electronically Authenticated By: Jason Wells MD Signed Date/Time: 04/10/201510 DD/ 10 TD/TT: - Medical Decision Making This is a 24-year-old female that presents with viral bronchitis. Patient is stable and was examined by me. Chest x-ray has been obtained and dictated by radiologist with normal exam. Patient is notified of x-ray results with no questions noted. Patient does not meet clinical concerns of COVID-19 but patient was instructed and educated on signs and symptoms and to self quarantine and seek medical attention as soon as possible if symptoms does occur. Vitals stable. Patient is nonfebrile and normal heart rate. Patient was instructed Follow-up with a primary care doctor in 3-5 days or if symptoms worsen and continue return to emergency room as soon as possible. At time time of discharge, the patient does not seem toxic or ill in appearance. No acute signs of distress noted. Patient agrees to discharge treatment plan of care. No further questions noted by the patient.nt. Critical care attestation.: If time is entered above; I have spent that time in minutes in the direct care of this critically ill patient, excluding procedure time. ED Disposition Clinical Impression: Viral bronchitis Disposition: DC- TO HOME OR SELFCARE Is pt being admited?: No Does the pt Need Aspirin: No Condition: Stable Additional Instructions: Follow-up with a primary care doctor in 3-5 days or if symptoms worsen and continue return to emergency room as soon as possible. Prescriptions: Benzonatate [Tessalon Perles] 100 mg PO Q8HR PRN #12 capsule PRN Reason: Cough Referrals: PRIMARY CAREMD [Primary Care Provider] - 3-5 Days COMPA UGARTE MD [Staff Physician] - 3-5 Days Forms: Work/School Release Form(ED)
== END 2020-04-10 16:58 | disposition home or self-care (01) ==
LOC: ED 13:18
DX: J20.8 Acute bronchitis due to other specified organisms (principal); B34.9 Viral infection, unspecified; R56.9 Unspecified convulsions; J45.909 Unspecified asthma, uncomplicated; Z98.890 Other specified postprocedural states; Z79.899 Other long term (current) drug therapy; Z91.040 Latex allergy status
CPT/HCPCS: 71046